=== PATIENT | male | born 1995 | race Caucasian/White ===

== ENCOUNTER 2018-07-18 03:00 | Emergency (ER) | payer SELFPAY ==
[~2018-07-18] VITALS: Ht 188 cm; Wt 100.0 kg
[2018-07-18 03:33] VITALS: BP 141/82
[2018-07-18] MEDS ORDERED: FLUORESCEIN SODIUM 1 MG STRIP ONE (03:38)
[2018-07-18] MEDS ORDERED: PROPARACAINE HCL 0.5% 15 ML OPHTHALMIC SOLUTION OS ONE (03:45)
[2018-07-18] MEDS ORDERED: ACETAMINOPHEN 500 MG TABLET PO ONE (04:00)
[2018-07-18] MEDS ORDERED: ERYTHROMYCIN 0.5% 3.5 GM TUBE OPHTHALMIC OINTMENT OS ONE (04:00)
== END 2018-07-18 04:26 | disposition home or self-care (01) ==
LOC: EMS 03:01
DX: H10.9 Unspecified conjunctivitis (principal); F17.210 Nicotine dependence, cigarettes, uncomplicated
CPT/HCPCS: 99283; 99406

== ENCOUNTER 2018-08-28 05:00 | Emergency (ER) | payer SELFPAY ==
[~2018-08-28] VITALS: Ht 188 cm; Wt 100.0 kg
[2018-08-28] MEDS ORDERED: PROPARACAINE HCL 0.5% 15 ML OPHTHALMIC SOLUTION OS ONE (05:45)
[2018-08-28 05:55] VITALS: BP 143/82
== END 2018-08-28 06:00 | disposition home or self-care (01) ==
LOC: EMS 05:00
DX: S05.02XA Injury of conjunctiva and corneal abrasion without foreign body, left eye, initial encounter (principal); F17.210 Nicotine dependence, cigarettes, uncomplicated; Z90.49 Acquired absence of other specified parts of digestive tract; X58.XXXA Exposure to other specified factors, initial encounter; Y93.89 Activity, other specified; Y92.89 Other specified places as the place of occurrence of the external cause; Y99.8 Other external cause status